=== PATIENT | male | born 1950 | race Two or more races ===

== ENCOUNTER 2021-12-21 23:20 | Emergency (ER) | payer OTHER ==
[~2021-12-21] VITALS: Ht 160 cm; Wt 73.0 kg
[2021-12-22 00:36] VITALS: BP 159/58
== END 2021-12-22 00:38 | disposition home or self-care (01) ==
LOC: ER 23:20
DX: R04.0 Epistaxis (principal); E78.5 Hyperlipidemia, unspecified; I10 Essential (primary) hypertension